=== PATIENT | male | born 1940 | race Caucasian/White ===

== ENCOUNTER 2017-08-10 06:33 | Day surgery (SDC) | payer MEDICARE, BC ==
[2017-08-07 16:13] VITALS: BMI 35.7
[2017-08-10] MEDS ORDERED: CEFAZOLIN/Water 2 GM/20 ML SYRINGE ONE (08:30)
[2017-08-10 09:16] LABS: #Eosinphils 0.4 thou/uL (0.0-0.7); #Lymphocytes 1.3 thou/uL (1.20-3.40); #Neutrophils 5.8 thou/uL (1.40-6.50); %Basophils 0.1 % (0.0-1.0); %Eosinophils 4.9 % (0.0-10.0); %Lymphocytes 17.7 % (21.0-51.0); %Monocytes 0.1 % (0.0-10.0); Hematocrit 40.1 % (42.0-52.0); Mean Platelet Volume 7.9 fL (7.4-10.4); Red Blood Cell (RBC) Count 4.13 mill/uL (4.70-6.10); White Blood Cell (WBC) Count 7.5 thou/uL (4.8-10.8)
[2017-08-10 09:33] LABS: Anion Gap 11 mmol/L (10-20); BUN (Urea Nitrogen) 24 mg/dL (8.4-25.7); Calc. Creatinine Clearance 83 mL/min (70-130); Calcium 8.4 mg/dL (7.8-10.44); Carbon Dioxide 31 mmol/L (23-31); Chloride 102 mmol/L (98-107); Estimated GFR-MDRD 65
[2017-08-10] MEDS ORDERED: Gentamicin 80 MG/2 ML VIAL ONE (10:04)
[2017-08-10] MEDS ORDERED: Sodium Chloride 0.9% 20 ML ONE (10:05)
[2017-08-10] MEDS ORDERED: Neomycin-Polymyxin 1 ML AMP ONE (10:05)
[2017-08-10] MEDS ORDERED: Bacitracin Zinc Ointment 30 gm TUBE ONE ×2 (10:05→12:04)
[2017-08-10] MEDS ORDERED: Fentanyl 100 MCG/2 ML VIAL ONE (10:07)
[2017-08-10] MEDS ORDERED: Propofol 200 MG/20 ML VIAL ONE (10:30)
[2017-08-10] MEDS ORDERED: Lidocaine 1% PF 5 ML VIAL ONE (10:30)
[2017-08-10] MEDS ORDERED: Ondansetron HCl/PF 4 MG/2 ML Vial ONE (10:30)
[2017-08-10] MEDS ORDERED: ePHEDrine/0.9% NaCl/PF SYRINGE 50 mg/10 ml ONE (10:30)
[2017-08-10] MEDS ORDERED: Dexamethasone 20 MG/5 ML VIAL ONE (10:30)
[2017-08-10] MEDS ORDERED: Glycopyrrolate 0.2 MG/ML 5 ML SYRINGE ONE ×3 (10:30→11:41)
[2017-08-10] MEDS ORDERED: Metoclopramide HCl 10 MG/2 ML VIAL ONE (10:30)
[2017-08-10] MEDS ORDERED: Bupivacaine 0.25% HCL 30 ML VIAL ONE (10:42)
[2017-08-10] MEDS ORDERED: EPINEPHrine 1 MG/ML AMP ONE (10:42)
--- NOTE | 2017-08-10 11:45 | EKG ---
Test Reason : PREOP Blood Pressure : / mmHG Vent. Rate : 045 BPM Atrial Rate : 045 BPM P-R Int : 206 ms QRS Dur : 096 ms QT Int : 496 ms P-R-T Axes : 034 -17 026 degrees QTc Int : 429 ms Marked sinus bradycardia Abnormal ECG When compared with ECG of 19-JUN-2004 12:21, Vent. rate has decreased BY [address] Skyler MORROW ([id number]) on 08/10/2017 11:45:21 AM Referred By: BETI Confirmed By:DR. Skyler MORROW
[2017-08-10] MEDS ORDERED: hydrALAZINE 20 MG/ML VIAL ONE (13:14)
[2017-08-10] MEDS ORDERED: hydrALAZINE 20 MG/ML VIAL SLOW IVP PRN (13:39)
--- NOTE | 2017-08-10 15:06 | OP ---
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 POSTOPERATIVE DIAGNOSIS: Basal cell carcinoma of the nose (C443.11). PROCEDURES PERFORMED: 1. Wide excision basal cell carcinoma of the nose (4.4 cm including adequate margins) (55112). 2. Forehead flap to nose (79992). 3. Complex closure forehead (14 cm) (22747, 27522) x2. PROCEDURE IN DETAILS: Following induction of adequate anesthesia, the patient was prepped and drape d in the usual sterile fashion in the supine position. The patient had a nasal tip lesion as well a s a nasal dorsum lesion. These were nearly adjacent lesions, so they were cut out en bloc. The spe cimen was sent for frozen section analysis, which came back as margins clear. There was very large defect that could obviously not be closed primarily. Forehead flap reconstruction was chosen. A paramedian forehead flap was raised in a deep plane leav ing down the periosteum. This was rotated into place. The tip was thinned minimally. The flap was inset with interrupted running 5-0 Prolene sutures. The forehead defect cannot be closed without undue tension. Therefore, in a subgaleal plane, forehe ad was elevated in approximately 7 cm laterally on each side from the incision. This allowed for ap propriate tension closure with 3-0 PDS suture and 3-0 Monocryl suture. All reyes were copiously ir rigated and inspected for meticulous hemostasis prior to closure. The patient tolerated the procedu re well.
== END 2017-08-10 16:19 | disposition home or self-care (01) ==
LOC: SDC 06:33
PROVIDERS: ATTEND Plastic Surgery
PROC: 0HB1XZZ Excision of Face Skin, External Approach (ICD-10-PCS; principal; 2017-08-10)
PROC: 0HX1XZZ Transfer Face Skin, External Approach (ICD-10-PCS; 2017-08-10)
DX: C44.311 Basal cell carcinoma of skin of nose (principal); G47.33 Obstructive sleep apnea (adult) (pediatric); M19.90 Unspecified osteoarthritis, unspecified site; I10 Essential (primary) hypertension; I25.10 Atherosclerotic heart disease of native coronary artery without angina pectoris; N40.0 Benign prostatic hyperplasia without lower urinary tract symptoms; Z79.02 Long term (current) use of antithrombotics/antiplatelets; Z79.82 Long term (current) use of aspirin; Z79.899 Other long term (current) drug therapy; Z99.81 Dependence on supplemental oxygen; Z99.89 Dependence on other enabling machines and devices; Z88.8 Allergy status to other drugs, medicaments and biological substances; Z96.1 Presence of intraocular lens; Z95.818 Presence of other cardiac implants and grafts; Z98.42 Cataract extraction status, left eye; Z98.41 Cataract extraction status, right eye; Z98.890 Other specified postprocedural states
CPT/HCPCS: 36415; 80048; 85025; 88305; 88331; 88332; 93005; 93010; 96374; A4216; J0131; J0171; J0360; J1100; J1580; J2001; J2405; J2704; J2765; J3010; J3370; J3490; S0020